=== PATIENT | female | born 1965 | race Caucasian/White ===

== ENCOUNTER 2020-12-28 12:13 | Emergency (ER) | payer OTHER, SELFPAY ==
[2020-12-28 12:22] VITALS: BP 116/78; PULSE 77; RESP 14; TEMP 37.7; O2SAT 100
[2020-12-28 12:38] VITALS: BP 116/78; PULSE 77; RESP 14; TEMP 37.7; O2SAT 100
--- NOTE | 2020-12-28 13:11 | ED.GENADULT ---
HPI - General Adult General Chief complaint: Upper Respiratory Infection Stated complaint: Chills, nausea, body aches and headache Time Seen by Provider: 12/28/20 12:57 Source: patient and RN notes reviewed Mode of arrival: ambulatory Limitations: no limitations History of Present Illness HPI narrative: 55-year-old female presents with complaints of upper respiratory infection symptoms, chills, body aches, and headache (not the worst of her life) for the past 2 days. Dawn reports increasing symptoms of URI body aches, and nausea causing her to leave work today. Tylenol was last taken today at 06:30 AM without relief. ?No cough or chest congestion. ?Rhinorrhea and nasal congestion. ?No sore throat or exacerbating factors. ?No high fevers and sweats. ?Nausea without vomiting and abdominal pain. Tolerating po intake well. Denies chest pain, coughing up blood, jaw pain, dental pain, facial pain, foreign body sensation, and rash. The patient reports he has not been diagnosed with COVID-19. ?The patient reports he received 2 Moderna COVID-19 vaccines. ?The patient reports he is not waiting for the results of a COVID-19 lab test. ?The patient reports he does not have weakness, fatigue, or myalgia. ?The patient reports he does not have a worsening cough or shortness of breath. ?The patient reports he does not have any loss of taste or smell and diarrhea. ?Denies recent traveling. ?Denies concerns for COVID-19 or exposures. ?At this time, the patient is not suspected of having COVID-19. Some parts of this dictation were generated by voice recognition software and may contain typographical and/or grammatical inaccuracies. Related Data Home Medications Medication Instructions Recorded Confirmed apixaban [Eliquis] 5 mg PO BID 12/28/20 12/28/20 digoxin 250 mcg PO DAILY 12/28/20 12/28/20 metoprolol tartrate 25 mg PO BID 12/28/20 12/28/20 Allergies Allergy/AdvReac Type Severity Reaction Status Date / Time No Known Allergies Allergy Verified 12/28/20 12:37 Review of Systems Review of Systems: Narrative: CONSTITUTIONAL: Complaints of chills. Denies fever, sweats. EYES: Denies visual changes, redness, discharge. ENT: Complains of rhinorrhea, congestion. Denies otalgia, sore throat. CARDIOVASCULAR: Denies chest pain, palpitations, edema. RESPIRATORY: Denies wheezing, dyspnea, cough. GASTROINTESTINAL: Denies abdominal pain, vomiting, diarrhea. Complaints of nausea. GENITOURINARY: Denies dysuria, hematuria, abnormal discharge. SKIN: Denies rash or itching. MUSCULOSKELETAL: Denies acute back pain, joint pain, myalgia. Complaints of body aches NEUROLOGIC: Denies numbness or focal weakness. GALARZA. PSYCHIATRIC: Denies anxiety or depression. All systems reviewed & are unremarkable except as noted in HPI and below. [facility] Past Medical History Medical History (Updated 12/29/20 @ 00:01 by Aida Christian) Atrial fibrillation COPD (chronic obstructive pulmonary disease) Pacemaker Surgical History Surgical History (Updated 12/28/20 @ 13:20 by BLAINE Miranda) No significant past surgical history Family History Family History (Updated 12/28/20 @ 13:15 by BLAINE Miranda) Father , MVC Unknown family medical history Mother Lung cancer Social History Social History (Updated 12/28/20 @ 13:16 by BLAINE Miranda) Smoking packs per day: 0.5 Smoking cigarettes per day: 10.0 Smoking status: Current every day smoker Tobacco type: cigarettes Second hand tobacco smoke exposure: Yes (significant other) Alcohol intake: current Substance use: never Substance use type: does not use Living arrangements: with family Occupation/Education: occupation 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
[2020-12-29 16:56] LABS: SARS-CoV-2 RNA PCR Negative
== END 2020-12-28 13:46 | disposition home or self-care (01) ==
PROVIDERS: Emergency Provider Nurse Practitioner Family; PCP Internal Medicine
DX: J06.9 Acute upper respiratory infection, unspecified (principal); Z20.822 Contact with and (suspected) exposure to COVID-19; I48.91 Unspecified atrial fibrillation; J44.0 Chronic obstructive pulmonary disease with (acute) lower respiratory infection; Z95.0 Presence of cardiac pacemaker; F17.210 Nicotine dependence, cigarettes, uncomplicated
CPT/HCPCS: 87804; 99213; C9803; G0463; U0003; U0005